=== PATIENT | female | born 1975 | race Hispanic/Latino ===

== ENCOUNTER 2021-01-21 11:35 | Inpatient (IN) | payer MEDICAID, OTHER, SELFPAY ==
[2021-01-21 16:25] VITALS: BMI 23.3
[2021-01-21 16:39] LABS: Hemoglobin 11.3 g/dL (12.0-15.5); Mean Corpuscular HGB CONC 32.6 g/dL (32.0-36.0); Mean Corpuscular Hemoglobin 28.8 pg (27.0-33.0); Mean Corpuscular Volume 88.5 fl (81.6-98.3); Mean Platelet Volume 12.3 fl (7.4-10.4); Platelet Count 158 10x3/uL (150-450); RBC Distribution Width 14.3 % (11.5-14.5); Red Blood Cell (RBC) Count 3.92 10x6/uL (3.90-5.03); White Blood Cell (WBC) Count 6.1 10x3/uL (3.5-10.5)
[2021-01-21] MEDS ORDERED: Fentanyl 2 mcg/Bup 0.1% Cadd 100 ML ONE (16:41)
[2021-01-21 17:07] LABS: Syphilis Antibody Nonreactive (Nonreactive); Syphilis Antibody Index 0.17 S/CO (<1.00 Non-Reactive)
[2021-01-21 17:08] LABS: Hep B Surf Ag Non-Reactive S/CO (NonReactive)
[2021-01-21 17:34] LABS: HBSAg Index 0.17 S/CO (0-0.99)
[2021-01-21 17:43] LABS: SARS-CoV-2 NAA Rapid Test Not Detected (NotDetected)
[2021-01-21] MEDS ORDERED: Ondansetron PF 4 MG/2 ML Vial ONE (17:49)
[2021-01-21] MEDS ORDERED: NS w/ Oxytocin 30 units 500 ML ONE (19:26)
[2021-01-21] MEDS ORDERED: Lanolin Ointment 7 GM TUBE TOP PRN (20:03)
[2021-01-21] MEDS ORDERED: HYDROcodone/Acetaminophen 5/325 mg Tablet PO PRN (20:03)
[2021-01-21] MEDS ORDERED: Boostrix 0.5 ML (Tdap) VIAL IM ONE (20:03)
[2021-01-21] MEDS ORDERED: hydrALAZINE 20 MG/ML VIAL SLOW IVP PRN (20:03)
[2021-01-21] MEDS ORDERED: NS w/ Oxytocin 30 units 500 ML IV SCH (20:03)
[2021-01-21] MEDS ORDERED: Bisacodyl 10 MG SUPP PR PRN (20:03)
[2021-01-21] MEDS ORDERED: Milk Of Magnesia 30 ML UDCUP PO PRN (20:03)
[2021-01-21] MEDS ORDERED: diphenhydrAMINE 25 MG CAP PO PRN (20:03)
[2021-01-21] MEDS: Docusate Calcium (SURFAK) 240 MG CAP PO SCH (22:33)
[2021-01-21] MEDS: Ibuprofen 800 MG TAB PO SCH (22:33)
[2021-01-22] MEDS: Ibuprofen 800 MG TAB PO SCH ×3 (05:40→21:10)
[2021-01-22] MEDS: Ferrous Sulfate 325 MG TAB PO SCH (07:18)
[2021-01-22] MEDS: Docusate Calcium (SURFAK) 240 MG CAP PO SCH ×2 (08:36→21:10)
[2021-01-22] MEDS: Prenatal Vitamin 1 TAB PO SCH (08:36)
[2021-01-23] MEDS: Ibuprofen 800 MG TAB PO SCH ×2 (05:21→14:58)
[2021-01-23 07:51] VITALS: BP 110/67; TEMP 97.9
[2021-01-23] MEDS: Ferrous Sulfate 325 MG TAB PO SCH (08:24)
[2021-01-23] MEDS: Docusate Calcium (SURFAK) 240 MG CAP PO SCH (08:55)
[2021-01-23] MEDS: Prenatal Vitamin 1 TAB PO SCH (08:55)
== END 2021-01-23 15:40 | disposition home or self-care (01) | DRG 807 ==
LOC: CSHLD/OP 11:35 → CSHLD 16:52 → CSHPP 21:35
PROVIDERS: ADMIT Family Medicine; ATTEND Family Medicine
PROC: 10E0XZZ Delivery of Products of Conception, External Approach (ICD-10-PCS; principal; 2021-01-21)
PROC: 10907ZC Drainage of Amniotic Fluid, Therapeutic from Products of Conception, Via Natural or Artificial Opening (ICD-10-PCS; 2021-01-21)
PROC: 10H07YZ Insertion of Other Device into Products of Conception, Via Natural or Artificial Opening (ICD-10-PCS; 2021-01-21)
DX: O34.211 Maternal care for low transverse scar from previous cesarean delivery (principal); Z37.0 Single live birth; Z20.822 Contact with and (suspected) exposure to COVID-19; Z3A.38 38 weeks gestation of pregnancy
CPT/HCPCS: 36415; 51702; 85027; 86780; 86850; 86900; 86901; 87340; J2405; J2590; U0002